=== PATIENT | male | born 1990 | race Caucasian/White ===

== ENCOUNTER 2022-06-13 17:10 | Outpatient (CLI) | payer SELFPAY ==
[2022-06-13 17:57] LABS: Cholesterol 205 mg/dL (0-200); HDL Direct 38 mg/dL; Triglycerides 95 mg/dL (<150)
[2022-06-13 18:08] LABS: LDL Cholesterol Direct 126 mg/dL
== END 2022-06-13 17:11 | disposition home or self-care (01) ==
LOC: ANHLAB 17:11
PROVIDERS: PCP Family Medicine; Visit Provider Nurse Practitioner Family
DX: Z13.220 Encounter for screening for lipoid disorders (principal)
CPT/HCPCS: 36415; 80061

== ENCOUNTER 2023-07-18 16:15 | Outpatient (CLI) | payer OTHER, SELFPAY ==
--- NOTE | ~2023-07-18 | CT_ITS ---
EXAMINATION:CT diagnostic chest wo con DATE: 07/18/2023 16:36 INDICATION: Solitary pulmonary nodule. TECHNIQUE: Computed tomography (CT) of the chest was performed without intravenous contrast. Automate d exposure control and iterative reconstruction technique were employed. The dose-length product (DLP ) was 216.25 mGy-cm. COMPARISON: CT abdomen and pelvis 05/26/2013 FINDINGS: There are a few scattered pulmonary nodules measuring up to 4 mm. No pleural effusion. The heart size is normal. No pericardial effusion. There is mild thoracic spondylosis. IMPRESSION: 1. Small pulmonary nodules, likely benign. Reviewed, dictated and finalized at location E. [employer] OPERATOR
== END 2023-07-18 16:16 | disposition home or self-care (01) ==
PROVIDERS: PCP Family Medicine; Visit Provider Nurse Practitioner Family
DX: R91.8 Other nonspecific abnormal finding of lung field (principal)
CPT/HCPCS: 71250

== ENCOUNTER 2024-01-16 09:34 | Outpatient (CLI) | payer OTHER, SELFPAY ==
--- NOTE | 2024-01-20 15:48 | WPDHOMESLEEP ---
Sleep Study - Home Unattended Date of Study: 01/16/24 Ordering Provider: Paulie Wise APRN Interpreting Provider: Priyanka Mendoza MD Home Sleep Study Type: Watch PAT Height: 1.78 m Weight: 95.254 kg Body Mass Index: 30.1 Neck Circumference (inches): 16.75 [place]gil: 14 Reason for Sleep Study Hypersomnolence Sleep History Josse Vazquez s a -year-old man with excessive daytime sleepiness. He did not complete the sleep questionnaire. His office note from Paulie Wise APRN indicates that the patient wakes himself at night, gasping for breath. His reported that he snores loudly, and he has witnessed apneas. He wakes with a dry mouth and a sore throat. He does not have regular dreaming. He denied urinating at night. He is not refreshed on waking in the morning. He does wake with morning headaches. He normally gets 4-5 hours of sleep at night. He is sleepy when he is driving long commute to work but has never fallen asleep at the wheel. He rarely naps. There is a family history with both parents having sleep apnea. [facility] Past Medical History Medical History BMI 32.0-32.9,adult History of tobacco abuse Family History Family History Father Hypertension DEEPTHI (obstructive sleep apnea) Mother DEEPTHI (obstructive sleep apnea) Social History Social History Smoking packs per day: 1.5 Smoking cigarettes per day: 30.0 Years smoked: 18 Smoking pack-years: 27.00 Smoking status: Former smoker Tobacco type: cigarettes Smoking end date: 06/29/23 Alcohol intake: current Substance use: never Substance use type: does not use Medications Home Medications Medication Instructions Recorded Confirmed Type ergocalciferol (vitamin D2) 1,250 50,000 unit PO WEEKLY #8 caps 11/19/23 01/09/24 Rx mcg (50,000 unit) capsule testosterone cypionate 200 mg/mL 200 mg IM .bi weekly #10 mL 12/26/23 01/09/24 Rx intramuscular oil phentermine 37.5 mg tablet 37.5 mg PO DAILY #30 tabs 01/01/24 01/09/24 Rx Sleep Procedure The sleep study was completed using [employer] a technically adequate device with seven channels: peripheral arterial tone, actigraphy, body position, snore, respiratory movement, pulse oximetry, sleep staging, and heart rate. Prior to using the device, the patient received verbal and written instructions for its application and was provided with the help desk phone number for additional telephonic instruction with 24-hour availability of qualified personnel to answer questions. Sleep Architecture The total recording time is 6 hours 58 minutes. The total sleep time is 6 hours 17 minutes. Sleep latency is 6 minutes. REM latency is 57 minutes. Sleep efficiency is 90 0.2% The patient had 7 episodes of waking. Sleep architecture shows 15.8% deep sleep, 65% light sleep, and 19.3 % stage REM. The patient spent 162 minutes, 42.9% of total sleep time in the supine position. Respiratory Analysis The overall AHI is 8.5. The central AHI is 0.8. The REM AHI is 10. The supine apnea-hypopnea index is 4.8. The nonsupine apnea-hypopnea index is 11.2. There was no evidence of Gilberto-Stewart respirations. Oximetry Data The oxygen desaturation index is 1.1. The mean saturation is 95%, the lowest saturation is 89 %, and the patient spent no time below 88% saturation. Snoring Profile Snoring was present, average intensity 40 dB. The patient snored above 45 dB for 4.8 minutes, 1.3% of the sleep time. Cardiac Profile The average pulse is 52 beats per minute, the lowest pulse is 33 beats per minute, and the highest pulse is 105 beats per minute. The cardiac rhythm analysis in sleep feature showed suspected atrial fibrillation for over 1 minute. Assessment and Plan Assessment and Plan (1) Obstructive sleep apnea: Code(s): G47.33 - Obstructive sleep apnea (adult) (pediatric) Status:
[2024-01-20 22:29] VITALS: BMI 30.1
== END 2024-01-17 14:25 | disposition home or self-care (01) ==
LOC: ANHCSM 09:36
PROVIDERS: PCP Family Medicine; Visit Provider Nurse Practitioner Family
DX: G47.10 Hypersomnia, unspecified (principal); G47.33 Obstructive sleep apnea (adult) (pediatric)
CPT/HCPCS: 95800

== ENCOUNTER 2024-01-22 12:48 | Outpatient (CLI) | payer OTHER, SELFPAY ==
--- NOTE | ~2024-01-22 | XR_ITS ---
XR chest 2V Ordering provider: Paulie Wise APRN History: 33 years Male with . w/ VQ scan . Comparison: April 21, 2017 FINDINGS: MEDIASTINUM: The cardiac silhouette is not enlarged. LUNGS: No infiltrates, effusions or pneumothorax. OTHER: No free air under the diaphragm. IMPRESSION: No acute cardiopulmonary pathology. Reviewed, dictated and finalized at location A.
--- NOTE | ~2024-01-22 | NM_ITS ---
EXAMINATION: NM lung vent and perfusion DATE: 01/22/2024 13:22 INDICATION: Chest pain with breathing TECHNIQUE: 9.0 mCi xenon-133 by inhalation and 5.5 mCi Tc-99m MAA by intravenous route. Scintigraphi c images of the chest were obtained. COMPARISON: Chest radiograph dated 01/22/2024 FINDINGS: There is homogeneous radiotracer activity throughout the lungs on the single breath ventilation seque nce. There is relatively homogeneous perfusion throughout the lungs. No discrete ventilation and pe rfusion mismatch is identified. IMPRESSION: 1. Normal study. Very low probability for pulmonary embolism. Reviewed, dictated and finalized at location B.
== END 2024-01-22 12:49 | disposition home or self-care (01) ==
PROVIDERS: PCP Family Medicine; Visit Provider Nurse Practitioner Family
DX: R07.1 Chest pain on breathing (principal)
CPT/HCPCS: 71046; 78582; A9540; A9558